=== PATIENT | male | born 1980 | race Caucasian/White ===

== ENCOUNTER → 2017-10-02 10:39 | Outpatient (CLI) | payer BC, SELFPAY ==
--- NOTE | 2017-10-02 11:55 | RAD_ITS ---
STUDY: X-RAY CHEST REASON FOR EXAM: Male, 37 years old. Shortness of breath, smoking and dust exposure. TECHNIQUE: PA and lateral views of the chest on 3 films. COMPARISON: None. FINDINGS: There is hyperinflation of the lungs, suggesting obstructive pulmonary disease. No infiltrates. There is no demonstrated pleural abnormality. Normal size heart. Normal mediastinum and britney. Normal visualized pulmonary arteries. Normal visualized aortic arch and descending thoracic aorta. There is degenerative endplate spurring of the thoracic spine at T9-10. Normal visualized ribs, clavicles, and shoulders. There is no demonstrated abnormality of the visualized soft tissue structures of the upper abdomen. RAD/Chest PA and Lateral IMPRESSION: Hyperexpanded, suggesting obstructive pulmonary disease. No infiltrate or CHF. Electronically Signed: Cuba Blake MD at 18:21 EST , Service support ,
--- NOTE | 2017-10-03 13:51 | PFTCOMP ---
COMPLETE PULMONARY FUNCTION TEST INTERPRETATION Brief HPI: Patient is a 37 year old male, currently under the care of Dr. Kay, who presents to [facility] for complete pulmonary function tests secondary to diagnosis of dust exposure and dyspnea. Respiratory therapist reports good effort and reproducible results. Interpretation: Forced expiration spirometry shows a mild large airways obstructive ventilatory defect with an FEV1 of 87 % predicted. There is no significant bronchodilator response by strict ATS criteria. Spirograms are of good quality and plateau normally. The respiratory flow volume loop shows decreased expiratory flow rates at all lung volumes consistent with airway obstruction. Lung volumes by body plethysmography show a normal total lung capacity at 7.59 L, 99 % predicted. All other lung volumes are within normal limits. Diffusion capacity by carbon monoxide is normal at 93 % predicted. The airway resistance is normal. No previous pulmonary function tests were available for review. Impression: Irreversible mild large airways obstructive ventilatory defect with preserved lung volumes in diffusing capacity consistent with chronic bronchitis. Some bronchodilator response was noted, but this did not reach clinical significance by strict ATS criteria.
--- NOTE | 2017-10-03 14:08 | PFTCOMP_ITS ---
COMPLETE PULMONARY FUNCTION TEST INTERPRETATION Brief HPI: Patient is a 37 year old male, currently under the care of Dr. Kay , who presents to [facility] for complete pulmonary function tests secondary to diagnosis of dust exposure and dyspnea. Respiratory therapist reports good effort and reproducible results. Interpretation: Forced expiration spirometry shows a mild large airways obstructive ventilatory defect with an FEV1 of 87 % predicted. There is no significant bronchodilator response by strict ATS criteria. Spirograms are of good quality and plateau normally. The respiratory flow volume loop shows decreased expiratory flow rates at all lung volumes consistent with airway obstruction. Lung volumes by body plethysmography show a normal total lung capacity at 7.59 L , 99 % predicted. All other lung volumes are within normal limits. Diffusion capacity by carbon monoxide is normal at 93 % predicted. The airway resistance is normal. No previous pulmonary function tests were available for review. Impression: Irreversible mild large airways obstructive ventilatory defect with preserved lung volumes in diffusing capacity consistent with chronic bronchitis. Some bronchodilator response was noted, but this did not reach clinical significance by strict ATS criteria.
== END ==
PROVIDERS: Family Provider Family Medicine; PCP Family Medicine; Visit Provider Family Medicine
DX: R06.00 Dyspnea, unspecified (principal); Z77.29 Contact with and (suspected) exposure to other hazardous substances; Z87.891 Personal history of nicotine dependence
CPT/HCPCS: 71046; 94060; 94726; 94729

== ENCOUNTER → 2020-06-02 09:42 | Outpatient (CLI) | payer OTHER, SELFPAY ==
[2020-01-20 07:15] VITALS: BMI 24.3
--- NOTE | 2020-06-02 09:45 | RAD_ITS ---
STUDY: X-RAY - ABDOMEN/PELVIS REASON FOR EXAM: Male, 39 years old. LLQ abdominal pain, left pelvic pain -- question constipation TECHNIQUE: Single AP view of the abdomen / pelvis. COMPARISON: None. FINDINGS: Normal visualized lung bases. There is a moderate amount of colonic fecal material. The visualized liver, spleen and kidneys are grossly normal in size and morphology. Normal soft tissue structures. Normal visualized osseous structures. RAD/Abdomen Single View IMPRESSION: Moderate amount of fecal material is seen in the colon. Electronically Signed: David Mckeon, at 15:37 EST , Service support ,
[2020-06-02 09:57] LABS: Bacteria 0 SEEN /hpf (None Seen); Mucous, Urine 0 SEEN /hpf (<or=2+); Squamous Epithelial Cells - UA 0 SEEN /hpf (0-5); White Blood Cells 0 SEEN /hpf (0-5)
[2020-06-02 12:15] LABS: Absolute Lymphocyte Count 2.02 X10^3/uL (0.83-4.51); Absolute Neutrophil Count 3.6 X10^3/uL (2.0-7.7); Basophil# 0.05 X10^3/uL; Basophil% 0.8 % (0-1); Eosinophil# 0.11 X10^3/uL; Eosinophils% 1.7 % (0-5); Hematocrit 46.2 % (40-54); Hemoglobin 14.9 g/dL (13.0-16.5); Lymphocyte # 2.02 X10^3/ul (4.0); Lymphocyte % 31.5 % (19-41); Mean Corp Hgb Conc 32.3 g/dL (32-36); Mean Corpuscular Hgb 29.9 pg (27.0-32.0); Mean Corpuscular Volume 92.6 fL (80-94); Mean Platelet Vol. 9.9 fl (6.2-12.0); Monocyte# 0.58 X10^3/uL; NRBC Flagged by Analyzer 0 % (0-5); Neutrophil # 3.63 X10^3/uL (2.7-7.7); Neutrophil % 56.5 % (47-70); Platelet Count 308 K/mm3 (150-450); RBC Distribution Width CV 11.4 % (11.6-14.6); Red Blood Count 4.99 M/mm3 (4.6-6.2); White Blood Count 6.4 K/mm3 (4.4-11.0)
[2020-06-02 12:27] LABS: Color, Urine Yellow (Yellow); Glucose, Dipstick Normal (Normal); Ketone-Dipstick Negative (Negative); Leukocyte Esterase-Dipstick Negative /ul (Negative); Nitrite-Dipstick Negative (Negative); Occult Blood-Urine 25 /ul (Negative); Protein-Dipstick Negative (Negative); Urine Bilirubin Dipstick Negative (Negative); Urine Clarity Clear (Clear); Urine Urobilinogen Normal (Normal); Urine pH 6.5 (5.0 - 8.0)
[2020-06-02 12:33] LABS: ALB/GLOB Ratio 1.2 RATIO (0.9-2.4); AST(SGOT) 17 U/L (15-37); Alanine Aminotransfer ALT/SGPT 29 U/L (16-61); Albumin, Serum 4.3 g/dL (3.2-5.0); Alkaline Phosphatase 86 U/L (45-117); Anion Gap 5 (5-15); BUN 10 mg/dL (7-18); BUN/Creat Ratio 10.7 RATIO (10-20); CRP < 2.90 mg/L (0.0-3.0); Chloride 105 mmol/L (98-107); Creatinine, Serum 0.94 mg/dL (0.70-1.30); EST Glomerular Filtration Rate 94 mL/min (>60); Est Glom Filt Rate - Afr Amer 114 mL/min (>60); Globulin 3.5 g/dL (2.2-4.2); Glucose 72 mg/dL (74-106); Potassium 3.7 mmol/L (3.5-5.1); Protein, Total 7.8 g/dL (6.4-8.2); Sodium Level 139 mmol/L (136-145)
[2020-06-02 12:38] LABS: Red Blood Cells-Urine 0-5 SEEN /hpf (0-5)
[2020-06-02 12:58] LABS: Erythrocyte Sedimentation Rate 3 mm/hr (0-15)
== END ==
PROVIDERS: PCP Family Medicine; Referring Provider Family Medicine; Visit Provider Family Medicine
DX: R10.32 Left lower quadrant pain (principal)
CPT/HCPCS: 36415; 74018; 80053; 81001; 85025; 85652; 86140

== ENCOUNTER → 2022-04-11 | Outpatient (CLI) | payer OTHER, SELFPAY | END | disposition home or self-care (01) | LOC: SL 10:06 | PROVIDERS: PCP Family Medicine; Referring Provider Internal Medicine Critical Care Medicine; Visit Provider Internal Medicine Critical Care Medicine | DX: G47.33 Obstructive sleep apnea (adult) (pediatric) (principal) | CPT/HCPCS: 95806 ==

== ENCOUNTER 2022-04-19 10:30 | Outpatient (RCR) | payer OTHER, SELFPAY ==
--- NOTE | 2022-03-29 13:03 | HP.SP.EVAL ---
History - History Date of Eval: 03/29/22 Medical Diagnosis (from [facility]): J38.3 Other diseases of the vocal cords Date of Onset of Diagnosis: 2017 Previous speech therapy: No Other Relevant Medical History/Diagnoses/Surgery: ZAY PAIGE is a 41 year old male who presents to [facility] on 03/29/22 for a voice evaluation d/t concerns from his show card writer, Dr. Escalera, that he may have vocal cord dysfunction. Pt attended evaluation alone today and served as historian. Per chart review, Pt participated in pulmonary function testing in 2018 revealing irreversible mild large airways obstructive ventilatory impairment with preserved lung volumes and diffusing capacity. Per chart review, Pt does not respond to the use of bronchodilators or inhaled corticosteroids. Pt's symptoms appear more prevalent in the spring and fall months -- Pt with concern for seasonal allergies, however no report of allergy testing. Chronic Disease Manager reportedly stated he did not feel this was a concern, per Pt. Per chart review, Pt has an 18-year history of smoking a pack of cigarettes/day but quit fully in 2014 -- Pt does continue to use chewing tobacco with intake about 1 can/day. Pt reports the VCD symptoms occur most often in the evening when he is watching TV in the recliner - when his mind is not pre-occupied with other activities. Pt reporting it feels like he is breathing air through a straw. Pt denying ever experiencing complete airway closure. Pt reports when he is watching TV he finds his mind begins to have time to think/worry about events of the day or future events. Medications related to this diagnosis: albuterol sulfate 90 mcg/actuation aerosol inhaler 2 puff INHALATION Q4H PRN Smoking Status: Former smoker - Pain Is pain an issue with your current prescribed condition?: No Patient Allergies - Allergies Allergies No Known Allergies Allergy (Unverified 03/21/22 10:46) Subjective Voice - Informal Questioner Do you scream (anger, sporting event, work, noisy envirmonment): None Do you raise your voice (e.g. parenting, calling from room to room, etc.): Average Do you talk for long periods of time without a break (teacher, thompson): None Are you a talker: Less than average Do you clear your throat: More than average Do you cough: Less than average Do you sing: None How often do you use the telephone: Less than average Do you do impersonations, character voices or unusual sound effects: None - Medications Mediations: Albuterol for suspected asthma. Pt reporting this helped initially however it does not have a positive effect or remediating his symptoms any more. - Intubation Was the Client intubated: Yes If yes, list date, duration, and explanation: Pt has a history of 3 major surgeries for his kidneys with the last one being in 2002 or 2003. Given Pt's explanation of his surgeries, suspecting Pt would have been intubated at least for the reconstructive surgery in . Unclear if Pt was intubated for the surgeries where a catheter was ran. Direct education provided re: traumatic events such as intubation can induce vocal cord dysfunction - these surgeries could be the etiology of his VCD. - Intake Soda (ounces): 96 - Alcoholic Beverage Intake Intake: Rarely - Other Product Usage Do you use products containing menthol (if yes, list): No Do you take Vitamin C Supplements (if yes, list amt (mg)/day: No Do you use recreational drugs (if yes, list type/amt/frequency): No HDQLIFE - Speech Difficulties - In the past 7 days. It was difficult for other people to understand me.: Never Is was difficult to speak clearly?: Never - In the past 7 days.. How often did you limit your social activites because you had difficulty speaking?: Never - In the past 7 days... I had trouble speaking.: Not at all I was frustrated by my speech difficulties.: Not at all - How much DIFFICULTY do you have... ...saying what you want to say?: No difficulty - Score HDQLIFE Speech Difficulties Raw Score: 6 HDQLIFE Speech Difficulties T - Score: 38 Plan - Plan Plan: Will recommend Pt for skilled outpatient speech therapy to address deficits in vocal function characterized by suspected vocal cord dysfunction. Pt would benefit from training in identifying instances of vocal abuse, providing vocal hygiene solutions, training in diaphragmatic breathing, relaxation techniques, and direct education re: vocal health. Without skilled speech therapy Pt is at risk for pulmonary distress in a variety of social situations. - Recommendations Treatment Warranted: Yes Treatment Warranted: Voice Comment: Considerations for ENT consult following a few weeks of therapy to objectively assess vocal function if warranted - Progress Prognosis: Excellent - Frequency Frequency: 1x/Week Duration: 3 Months - Goals that are Established Determination:: Goals will be added/modified as deemed necessary and appropriate. Therapy will be discontinued when results of re-evaluation indicate therapy is no longer needed or lack of progress has been documented. - Goal #1-5 Goal #1: Patient will establish volitional control of respiration evidenced by utilization of diaphragmatic breathing during structured tasks with greater than 90% acc independently within 3 months. Goal #2: Patient will establish volitional control of respiration evidenced by utilization of rescue breathing during structured tasks with greater than 90% acc independently within 3 months. Goal #3: Pt will demonstrate relaxation techniques (e.g., neck, breathing) with greater than 90% acc independently within 3 months. Goal #4: Pt will identify and modify behavioral and environmental factors (e.g., throat clearing, limit caffeine intake, limit tobacco intake, pause on breathing with intense thinking) to improve overall vocal hygiene within 3 months? time of initial evaluation. Education - Patient has Indicated that the Following Identified Educational Needs: None The Patient has indicated that they have no educational or learning abilities that may effect their care.: Yes - Patient Instruction Patient Education: Diagnosis, Treatment Plan, Goals, Home Exercise Program Other Education: Handout provided re: good practices of vocal health. Pt identifying two that he would like to work on = reducing caffeine intake (Pt consuming between 96 and 144 ounces of Pepsi on any given day) as well as reducing his habitual throat clearing. Direct education provided re: times throughout our daily routines where we stop breathing unintentionally. Provided Pt with a daily log to track times when he finds himself stopping his breath. Pt reporting following education that he feels he does this frequently when thinking intensely. Discussed problem solving this situation and that visual reminders to breathe may assist in reminding him. Encouraged Pt to begin remediating large amounts of caffeine and tobacco from his daily routine to help reduce the exposure to these environmental irritants. Discussed replacing 1 of his 8-12 cans of Pepsi a day with water/Gatorade/flavored water to reduce acidity in the oropharyngeal space. Also discussed Pt to keep track of the number of times he clears his throat throughout the day by keeping a tally system on paper or on his phone. Discussed how this was a vocal abuse behavior and may help to reduce feelings of VCD if remediated. We also reviewed his pulmonary function test from 2018 and discussed how there could be a mild impairment, potentially suggestive of incomplete vocal cord dysfunction given the other symptoms he has reported. Person Taught: Patient Teaching Method: Discussion, Demonstration, Handout Response to teaching: Return demonstration, Verbalize understanding, Reinforcement needed
--- NOTE | 2022-06-19 17:55 | HP.SP.DC ---
ST Discharge Summary - Discharged: Discharge: MAXINE PAIGE is a 41 year old male who was seen for initial voice evaluation at [facility] on 03/29/22 secondary to dx of suspected vocal cord dysfunction. Pt attending initial evaluation and three additional treatment sessions targeting relaxation techniques, diaphragmatic breathing, environment behavioral changes, and keeping a weekly log of VCD occurrences. Pt being discharged from speech therapy caseload on this date, 06/19/22, secondary to additional therapy sessions not being scheduled after cancelling his follow-up appt scheduled on 05/31/22. Thank you for allowing me to participate the care of your Pt. Will reevaluate at Pt?s request following script from physician.
== END 2022-04-19 19:00 | disposition home or self-care (01) ==
LOC: SP 10:30
PROVIDERS: PCP Family Medicine; Referring Provider Internal Medicine Critical Care Medicine; Visit Provider Internal Medicine Critical Care Medicine
DX: J38.3 Other diseases of vocal cords (principal)
CPT/HCPCS: 92507; 92524

== ENCOUNTER → 2025-05-03 | Outpatient (CLI) | payer OTHER, SELFPAY ==
--- NOTE | 2025-05-03 14:29 | RAD_ITS ---
PROCEDURE: ACUTE ABDOMEN INC CHEST 05/03/2025 REASON FOR EXAM: ABDOMINAL PAIN TECHNIQUE: Procedure Code: RADABDCA Modality: DX Procedure: ACUTE ABDOMEN INC CHEST COMPARISON: [facility], 06/02/2020. FINDINGS: The lungs are clear. The heart borders mediastinum and pulmonary vascular pattern are normal. Upright and supine images of the abdomen demonstrate a normal bowel gas pattern. There are no abnormal soft tissue calcifications or radiopaque foreign bodies. There are no significant bony abnormalities. RAD/Acute Abdomen Inc Chest IMPRESSION: No evidence of acute cardiopulmonary or acute abdominal pathology. Reading Location: [id number]
== END | disposition home or self-care (01) ==
LOC: MTRAD 14:28
PROVIDERS: PCP Family Medicine; Referring Provider Family Medicine; Visit Provider Family Medicine
DX: R10.9 Unspecified abdominal pain (principal)
CPT/HCPCS: 74022

== ENCOUNTER → 2025-05-24 | Outpatient (CLI) | payer OTHER, SELFPAY ==
[2025-05-24 17:59] LABS: Hematocrit 42.7 % (40-54); Hemoglobin 14.6 g/dL (13.0-16.5); Immature Granulocytes Count 0.040 X10^3/uL (0.0-0.0); Mean Corp Hgb Conc 34.2 g/dL (32-36); Mean Corpuscular Volume 89.9 fL (80-94); Mean Platelet Vol. 9.6 fl (6.2-12.0); NRBC Flagged by Analyzer 0 % (0-5); Platelet Count 302 K/mm3 (150-450); RBC Distribution Width CV 11.4 % (11.6-14.6); RBC Distribution Width SD 37.1 fl (35.1-43.9); Red Blood Count 4.75 M/mm3 (4.6-6.2); White Blood Count 6.6 K/mm3 (4.4-11.0)
[2025-05-24 18:40] LABS: AST(SGOT) 21 U/L (<=37); Alanine Aminotransfer ALT/SGPT 22 U/L (<=46); Albumin, Serum 4.8 g/dL (3.5-5.0); Alkaline Phosphatase 97 U/L (40-129); Anion Gap 11 (5-15); BUN 9 mg/dL (4-19); BUN/Creat Ratio 11.0 RATIO (10-20); Calcium,Total 9.4 mg/dL (7.6-11.0); Carbon Dioxide 24.3 mmol/L (21.0-32.0); Chloride 102 mmol/L (98-108); Globulin 2.5 g/dL (2.2-4.2); Glucose 76 mg/dL (70-99); PSA,Total - Annual Screen 0.54 ng/mL (0.02-4.00); Potassium 3.6 mmol/L (3.3-5.1); Vitamin B12 287 pg/mL (180-914); Vitamin D,25 Hydroxy 24.7 ng/mL (30-100)
[2025-05-31 09:08] LABS: Testosterone, % Free 2.17 % (1.50-4.20); Testosterone, Free 7.81 ng/dL (5.00-21.00)
== END | disposition home or self-care (01) ==
LOC: MTLAB 14:14
PROVIDERS: PCP Family Medicine; Referring Provider Family Medicine; Visit Provider Family Medicine
DX: R53.83 Other fatigue (principal); Z12.5 Encounter for screening for malignant neoplasm of prostate
CPT/HCPCS: 36415; 80053; 82306; 82607; 84153; 84402; 84403; 84439; 84443; 85025; G0103